=== PATIENT | female | born 1975 | race African-American/Black ===

== ENCOUNTER 2018-09-12 17:41 | Inpatient (IN) | payer OTHER ==
[2018-09-12 19:14] VITALS: BMI 30.5
--- NOTE | 2018-09-12 21:24 | HP ---
CIWA Score Nausea/Vomitin (x 2) Muscle Tremors: 3 Anxiety: 3 Agitation: 3 Paroxysmal Sweats: 1-Minimal Palms Moist Orientation: 0-Oriented Tacttile Disturbances: 0-None Auditory Disturbances: 0-None Visual Disturbances: 0-None Headache: 0-None Present CIWA-Ar Total Score: 13 - Admission Criteria OASAS Guidelines: Admission for Medically Managed Detox: Requires at least one of the followin. CIWA greater than 12 2. Seizures within the past 24 hours 3. Delirium tremens within the past 24 hours 4. Hallucinations within the past 24 hours 5. Acute intervention needed for co occurring medical disorder 6. Acute intervention needed for co occurring psychiatric disorder 7. Severe withdrawal that cannot be handled at a lower level of care (continued vomiting, continued diarrhea, abnormal vital signs) requiring intravenous medication and/or fluids 8. Admission ROS [facility] Chief Complaint: Alcohol withdrawal symptoms Allergies/Adverse Reactions: Allergies Allergy/AdvReac Type Severity Reaction Status Date / Time No Known Allergies Allergy Verified 09/12/18 20:30 History of Present Illness: 42 years old female with 20 years of alcohol dependence is seeking admission to detox. Patient has been in previous detox and reports 2 years of sobriety. She has medical history of DM Type 2, depression and anxiety. She reports suicide attempt in June 2018 and denies suicidal ideation at this time. This is her first admissio to [facility]. Exam Limitations: No Limitations - Ebola screening Have you traveled outside of the country in the last 21 days: No (N) Have you had contact with anyone from an Ebola affected area: No Have you been sick,other than usual withdrawal symptoms: No Do you have a fever: No - Review of Systems Constitutional: Chills, Loss of Appetite, Malaise EENT: reports: Nose Congestion Respiratory: reports: No Symptoms reported Cardiac: reports: No Symptoms Reported GI: reports: Poor Appetite, Poor Fluid Intake, Vomiting, Abdominal cramping : reports: No Symptoms Reported Musculoskeletal: reports: Back Pain, Muscle Pain Integumentary: reports: Dryness Neuro: reports: Tremors Endocrine: reports: No Symptoms Reported Hematology: reports: No Symptoms Reported Psychiatric: reports: Mood/Affect Appropiate, Orientated x3, Depressed Other Systems: Reviewed and Negative Patient History - Patient Medical History Hx Anemia: No Hx Asthma: No Hx Chronic Obstructive Pulmonary Disease (COPD): No Hx Cancer: No Hx Cardiac Disorders: No Hx Congestive Heart Failure: No Hx Hypertension: No Hx Hypercholesterolemia: No Hx Pacemaker: No HX Cerebrovascular Accident: No Hx Seizures: No Hx Dementia: No Hx Diabetes: Yes (DM 2) Hx Gastrointestinal Disorders: No Hx Liver Disease: No Hx Genitourinary Disorders: No Hx Sexually Transmitted Disorders: No Hx Renal Disease (ESRD): No Hx Thyroid Disease: No Hx Human Immunodeficiency Virus (HIV): No (2016) Hx Hepatitis C: No Hx Depression: Yes (Not on medication) Hx Suicide Attempt: Yes (June 2017. Denies suicidal ideation at this time) Hx Bipolar Disorder: No Hx Schizophrenia: Yes Other Medical History: Anxiety - Not on medicication - Patient Surgical History Past Surgical History: No - PPD History Previous Implant?: Yes Documented Results: Negative w/o proof Implanted On Prior [facility] Admission?: No PPD to be Administered?: Yes - Reproductive History Patient is a Female of Child Bearing Age (11 -55 yrs old): Yes Last Menstrual Period: 08/12/18 Patient : No - Smoking Cessation Smoking history: Current every day smoker Have you smoked in the past 12 months: Yes Aproximately how many cigarettes per day: 20 Hx Chewing Tobacco Use: No Initiated information on smoking cessation: Yes 'Breaking Loose' booklet given: 09/12/18 - Substance & Tx. History Hx Alcohol Use: Yes Hx Substance Use: Yes Substance Use Type: Alcohol, Cocaine, Marijuana Hx Substance Use Treatment: Yes ([facility]) - Substances Abused Alcohol Route: Oral Frequency: Daily Amount used: LINDA TONEY Age of first use: 22 Date of Last Use: 09/11/18 Cocaine Route: Smoking Frequency: 3-6 times per week Amount used: $100 Age of first use: 22 Date of Last Use: 09/12/18 Family Disease History - Family Disease History Family History: Denies Admission Physical Exam B[facility] - Vital Signs Vital Signs: Vital Signs - 24 hr 09/12/18 19:12 Temperature 96.8 F L Pulse Rate 82 Respiratory 18 Rate Blood Pressure 113/59 L - Physical General Appearance: Yes: Moderate Distress, Tremorous, Irritable, Anxious HEENTM: Yes: EOMI, Normal ENT Inspection, Normocephalic, Normal Voice, GHISLAINE Respiratory: Yes: Normal Breath Sounds, No Respiratory Distress Neck: Yes: Supple Breast: Yes: Breast Exam Deferred Cardiology: Yes: Regular Rhythm, Regular Rate Abdominal: Yes: Normal Bowel Sounds, Soft Genitourinary: Yes: Within Normal Limits Back: Yes: Normal Inspection Musculoskeletal: Yes: Back pain, Muscle Pain Extremities: Yes: Tremors Neurological: Yes: Alert, Normal Mood/Affect Integumentary: Yes: Warm Lymphatic: Yes: Within Normal Limits - Diagnostic (1) Alcohol dependence with uncomplicated withdrawal Current Visit: Yes Status: Acute (2) Nicotine dependence Current Visit: Yes Status: Acute Qualifiers: Nicotine product type: cigarettes Substance use status: uncomplicated Qualified Code(s): F17.210 - Nicotine dependence, cigarettes, uncomplicated (3) Diabetes type 2, uncontrolled Current Visit: Yes Status: Chronic (4) Depression Current Visit: Yes Status: Acute Qualifiers: Depression Type: unspecified Qualified Code(s): F32.9 - Major depressive disorder, single episode, unspecified (5) Anxiety Current Visit: Yes Status: Chronic Cleared for Admission [facility] - Detox or Rehab [facility] Level of Care: Medically Managed Detox Regimen/Protocol: Librium [facility] Breath Alcohol Content Breath Alcohol Content: 0 Urine Pregancy Test - Result Urine Test Results: Negative- NO Line Present Urine Drug Screen - Results Drug Screen Negative: No Urine Drug Screen Results: THC-Marijuana
[2018-09-12] MEDS ORDERED: ACETAMINOPHEN 325 MG TABLET (FP) PO PRN (21:34)
[2018-09-12] MEDS ORDERED: chlordiazePOXIDE HCL 25 MG CAPSULE PO PRN (21:34)
[2018-09-12] MEDS ORDERED: MAGNESIUM HYDROX 2400MG/30ML ORAL SUSPENSION 30 ML CUP PO PRN (21:34)
[2018-09-12] MEDS ORDERED: MAGNESIUM CITRATE 300 ML BOTTLE PO PRN (21:34)
[2018-09-12] MEDS ORDERED: LOPERAMIDE HCL 2 MG CAPSULE PO PRN (21:34)
[2018-09-12] MEDS ORDERED: guaiFENesin/D-METHORPHAN HB 10 ML UNIT-DOSE CUPS PO PRN (21:34)
[2018-09-12] MEDS ORDERED: MAG HYDROX/AL HYDROX/SIMETH 30 ML UNIT-DOSE CUP PO PRN (21:34)
[2018-09-12] MEDS ORDERED: IBUPROFEN 400 MG TABLET (FP) PO PRN (21:34)
[2018-09-12] MEDS ORDERED: MENTHOL/PHENOL 1 EACH UD MM PRN (21:34)
[2018-09-12] MEDS ORDERED: P-EPHED 60MG/TRIPROLIDI 2.5MG TABLET PO PRN (21:34)
[2018-09-12] MEDS ORDERED: NICOTINE POLACRILEX 2 MG GUM BC PRN (21:34)
[2018-09-12] MEDS ORDERED: MELATONIN 5 MG TABLETS PO PRN (22:00)
[2018-09-12] MEDS: chlordiazePOXIDE HCL 25 MG CAPSULE PO SCH (23:41)
[2018-09-12] MEDS: THIAMINE HCL 100 MG TABLET (FP) PO SCH (23:45)
[2018-09-12] MEDS: INSULIN SLIDING SCALE (NOVOLOG) 1 VIAL SQ SCH (23:45)
[2018-09-13] MEDS: chlordiazePOXIDE HCL 25 MG CAPSULE PO SCH ×4 (05:51→22:33)
[2018-09-13] MEDS: INSULIN SLIDING SCALE (NOVOLOG) 1 VIAL SQ SCH ×3 (07:34→17:08)
[2018-09-13] MEDS: PRENATAL VITAMINS W/ FOLIC ACID TABLET (FP) PO SCH (10:29)
[2018-09-13] MEDS: NICOTINE 14 MG/24 HOURS TOPICAL PATCH TD SCH (10:29)
--- NOTE | 2018-09-13 11:27 | PN ---
S CIWA - CIWA Score Nausea/Vomitin-No Nausea/No Vomiting Muscle Tremors: 4-Moderate,w/Arms Extend Anxiety: 3 Agitation: 3 Paroxysmal Sweats: 3 Orientation: 0-Oriented Tacttile Disturbances: 0-None Auditory Disturbances: 0-None Visual Disturbances: 0-None Headache: 0-None Present CIWA-Ar Total Score: 13 BHS Progress Note (SOAP) Subjective: shakes sweats body aches interrupted sleep tired Objective: 09/13/18 11:24 Vital Signs Temperature 97.1 F L 09/13/18 09:34 Pulse Rate 79 09/13/18 09:34 Respiratory Rate 16 09/13/18 09:34 Blood Pressure 107/61 09/13/18 09:34 O2 Sat by Pulse Oximetry (%) Laboratory Tests 09/13/18 05:43 POC Glucometer 140 rest of labs pending aaox3 ambulating no acute distress Assessment: 09/13/18 11:26 withdrawal sx Plan: continue detox increase fluids labs pending
--- NOTE | 2018-09-13 14:55 | CONSULT ---
[facility] Psychiatric Consult - Data Date of interview: 09/13/18 Admission source: [facility] Identifying data: First admission to [facility] for this 42 y/o AA female seeking detoxification treatment, on , for methamphetamie, cocaine (crack ), PCP, alcohol and cannabis dependence. Patient is single, a mother of two, domiciled, unemployed and supported on SSI benefits. Substance Abuse History: Confirmed by the patient in this interview. Details in current [facility] report : Smoking history: Current every day smoker. Have you smoked in the past 12 months: Yes. Aproximately how many cigarettes per day: 20. Hx Chewing Tobacco Use: No. Initiated information on smoking cessation: Yes. 'Breaking Loose' booklet given: 09/12/18. - Substance & Tx. History. Hx Alcohol Use: Yes. Hx Substance Use: Yes. Substance Use Type: Alcohol, Cocaine , Marijuana. Hx Substance Use Treatment: [facility] - Substances Abused. Alcohol. Route: Oral. Frequency: Daily. Amount used : LINDA TONEY. Age of first use: 22. Date of Last Use: . Cocaine. Route: Smoking. Frequency: 3-6 times per week. Amount used: $100. Age of first use: 22. Date of Last Use: 09/12/18 Medical History: Diabetes mellitus and obesity. Psychiatric History: Patient endorses a history of multiple psychiatric hospitalizations. She is known to [facility] ([facility]). Diagnosed with Bipolar Disorder. Recently discharged from [facility]. Ms Krause declares that she dropped out of psychiatric OPD follow-up soon after discharge.No recall of psychotropic medications utilized during hospitalization. Patient states that she made 3-4 suicide attempts over recent years (self-mutilation). Physical/Sexual Abuse/Trauma History: Not discussed. Patient declines. Additional Comment: Urine Drug Screen Results: THC-Marijuana. Noted. Mental Status Exam - Mental Status Exam Alert and Oriented to: Time, Place, Person Cognitive Function: Good Patient Appearance: Well Groomed (overweight) Mood: Hopeful, Euthymic Affect: Appropriate, Normal Range Patient Behavior: Appropriate, Cooperative Speech Pattern: Clear Voice Loudness: Normal Thought Process: Goal Oriented Thought Disorder: Not Present Hallucinations: Denies Suicidal Ideation: Denies Homicidal Ideation: Denies Insight/Judgement: Poor Sleep: Poorly, Difficulty falling asleep (wants trazodone) Appetite: Good Muscle strength/Tone: Normal Gait/Station: Normal Psychiatric Findings - Problem List ([place] 1, 2,3) (1) Alcohol dependence with uncomplicated withdrawal Current Visit: Yes Status: Acute (2) Cannabis dependence Current Visit: Yes Status: Chronic (3) Nicotine dependence Current Visit: Yes Status: Acute Qualifiers: Nicotine product type: cigarettes Substance use status: uncomplicated Qualified Code(s): F17.210 - Nicotine dependence, cigarettes, uncomplicated (4) Insomnia Current Visit: Yes Status: Chronic - Initial Treatment Plan Initial Treatment Plan: Psychoeducation. Sleep hygiene. Detoxification. Trazodone 50 mg po hs. Side effects/benefits discussed with the patient. Ms Krause agrees to this careplan. Observation.
[2018-09-13] MEDS: THIAMINE HCL 100 MG TABLET (FP) PO SCH (22:29)
[2018-09-14] MEDS: chlordiazePOXIDE HCL 25 MG CAPSULE PO SCH ×3 (06:03→18:00)
[2018-09-14] MEDS: INSULIN SLIDING SCALE (NOVOLOG) 1 VIAL SQ SCH ×3 (06:06→17:30)
--- NOTE | 2018-09-14 09:39 | PN ---
S CIWA - CIWA Score Nausea/Vomitin-No Nausea/No Vomiting Muscle Tremors: 3 Anxiety: 3 Agitation: 3 Paroxysmal Sweats: 3 Orientation: 0-Oriented Tacttile Disturbances: 0-None Auditory Disturbances: 0-None Visual Disturbances: 0-None Headache: 0-None Present CIWA-Ar Total Score: 12 [facility] Progress Note (SOAP) Subjective: low back pain sweats shakes interrupted sleep Objective: 09/14/18 09:46 Vital Signs Temperature 97.5 F L 09/14/18 09:21 Pulse Rate 70 09/14/18 09:21 Respiratory Rate 18 09/14/18 09:21 Blood Pressure 113/77 09/14/18 09:21 O2 Sat by Pulse Oximetry (%) Laboratory Tests 09/13/18 09/13/18 09/13/18 05:43 10:32 16:35 POC Glucometer 140 98 101 09/14/18 06:04 POC Glucometer 115 labs pending aaox3 ambulating no acute distress Assessment: 09/14/18 09:47 withdrawal sx Plan: continue detox lidocaine patch ordered
[2018-09-14] MEDS: PRENATAL VITAMINS W/ FOLIC ACID TABLET (FP) PO SCH (10:18)
[2018-09-14] MEDS: LIDOCAINE 5% TOPICAL PATCH TP SCH (10:19)
[2018-09-14] MEDS: NICOTINE 14 MG/24 HOURS TOPICAL PATCH TD SCH (10:19)
[2018-09-14] MEDS ORDERED: INSULIN (NOVOLOG) ASPART 100 UNITS/ML 10ML VIAL ONE (18:04)
[2018-09-14] MEDS: LIDOCAINE PATCH REMOVAL MC SCH (22:47)
[2018-09-14] MEDS: THIAMINE HCL 100 MG TABLET (FP) PO SCH (22:47)
[2018-09-14] MEDS: chlordiazePOXIDE 5 MG CAPSULE PO SCH (22:48)
[2018-09-15] MEDS: chlordiazePOXIDE 5 MG CAPSULE PO SCH ×3 (05:40→17:25)
[2018-09-15] MEDS: INSULIN SLIDING SCALE (NOVOLOG) 1 VIAL SQ SCH ×3 (07:14→16:47)
--- NOTE | 2018-09-15 07:53 | PN ---
[facility] Progress Note Note: seen for reported coffee spill to r hand. states spilled coffee on her hand due to hand tremors. Client denies pain at this time (noted with ice pack to site) . no other c/o offered. client seen ambulating in hallway with ice pack to dorsal aspect of r hand. a/o x3 nad right hand- blanchable redness noted to dorsal aspect of right hand not involving the digits. skin intact. no swelling .inner aspect of right hand intact no visible injury noted Vital Signs 09/15/18 09/15/18 06:00 07:39 Temperature 98.2 F 98.2 F Pulse Rate 78 77 Respiratory 18 18 Rate Blood Pressure 111/62 110/66 a-1st degree burn of r hand p-continue ice packs qid x15 min x 24 hours prn monitor for s/sx of infection
[2018-09-15] MEDS: PRENATAL VITAMINS W/ FOLIC ACID TABLET (FP) PO SCH (10:52)
[2018-09-15] MEDS: LIDOCAINE 5% TOPICAL PATCH TP SCH (10:53)
[2018-09-15] MEDS: NICOTINE 14 MG/24 HOURS TOPICAL PATCH TD SCH (10:53)
--- NOTE | 2018-09-15 13:10 | PN ---
[facility] Progress Note (SOAP) Subjective: anxiety shakes Objective: 09/15/18 13:10 Vital Signs Temperature 98.0 F 09/15/18 09:27 Pulse Rate 85 09/15/18 09:27 Respiratory Rate 18 09/15/18 09:27 Blood Pressure 112/63 09/15/18 09:27 O2 Sat by Pulse Oximetry (%) aaox3 ambulating no acute distress Assessment: 09/15/18 13:10 mild withdrawal sx Plan: continue detox increase fluids d/c in am
[2018-09-15] MEDS: THIAMINE HCL 100 MG TABLET (FP) PO SCH (22:17)
[2018-09-15] MEDS: LIDOCAINE PATCH REMOVAL MC SCH (22:17)
[2018-09-15] MEDS: chlordiazePOXIDE HCL 10 MG CAPSULE PO SCH (22:18)
[2018-09-16] MEDS: chlordiazePOXIDE HCL 10 MG CAPSULE PO SCH ×2 (05:27→10:36)
[2018-09-16] MEDS: INSULIN SLIDING SCALE (NOVOLOG) 1 VIAL SQ SCH ×2 (07:32→12:23)
--- NOTE | 2018-09-16 09:01 | DS ---
[facility] Detox Discharge Summary Admission Date: 09/12/18 Discharge Date: 09/16/18 - History Present History: Alcohol Dependence, Cannabis Dependence - Physical Exam Results Vital Signs: Vital Signs Temperature 98.4 F 09/16/18 06:00 Pulse Rate 77 09/16/18 06:00 Respiratory Rate 18 09/16/18 06:00 Blood Pressure 108/75 09/16/18 06:00 O2 Sat by Pulse Oximetry (%) - Treatment Hospital Course: Detox Protocol Followed, Detoxed Safely, Responded well, Discharged Condition Good, Rehab Referral Accepted - Medication Discharge Medications: Ambulatory Orders NK [No Known Home Medication] 09/12/18 - Diagnosis (1) Alcohol dependence with uncomplicated withdrawal Current Visit: Yes Status: Acute (2) Depression Current Visit: Yes Status: Acute Qualifiers: Depression Type: unspecified Qualified Code(s): F32.9 - Major depressive disorder, single episode, unspecified (3) Nicotine dependence Current Visit: Yes Status: Chronic Qualifiers: Nicotine product type: cigarettes Substance use status: uncomplicated Qualified Code(s): F17.210 - Nicotine dependence, cigarettes, uncomplicated (4) Anxiety Current Visit: Yes Status: Chronic (5) Cannabis dependence Current Visit: Yes Status: Chronic (6) Diabetes type 2, uncontrolled Current Visit: Yes Status: Chronic (7) Insomnia Current Visit: Yes Status: Chronic - AMA Did Patient Leave Against Medical Advice: No (referred to [facility] )
[2018-09-16 09:26] VITALS: TEMP 97.3
[2018-09-16] MEDS: PRENATAL VITAMINS W/ FOLIC ACID TABLET (FP) PO SCH (10:36)
[2018-09-16] MEDS: LIDOCAINE 5% TOPICAL PATCH TP SCH (10:36)
[2018-09-16] MEDS: NICOTINE 14 MG/24 HOURS TOPICAL PATCH TD SCH (10:37)
[2018-09-16 14:11] VITALS: BP 95/72; PULSE 87
== END 2018-09-16 14:17 | disposition home or self-care (01) | DRG 897 ==
LOC: YASAS 17:41 → Y6N 21:58
PROC: HZ2ZZZZ Detoxification Services for Substance Abuse Treatment (ICD-10-PCS; principal; 2018-09-12)
DX: F10.230 Alcohol dependence with withdrawal, uncomplicated (principal); F12.20 Cannabis dependence, uncomplicated; F17.210 Nicotine dependence, cigarettes, uncomplicated; F32.9 Major depressive disorder, single episode, unspecified; F41.9 Anxiety disorder, unspecified; E11.65 Type 2 diabetes mellitus with hyperglycemia; G47.00 Insomnia, unspecified; E66.9 Obesity, unspecified; Z68.30 Body mass index [BMI] 30.0-30.9, adult; T23.101A Burn of first degree of right hand, unspecified site, initial encounter; T31.0 Burns involving less than 10% of body surface; X10.0XXA Contact with hot drinks, initial encounter; Y93.9 Activity, unspecified; Y92.239 Unspecified place in hospital as the place of occurrence of the external cause; Z91.5 Personal history of self-harm
CPT/HCPCS: 82962